=== PATIENT | female | born 1945 ===

== ENCOUNTER 2020-10-24 11:22 | Emergency (ER) | payer OTHER ==
[~2020-10-24] VITALS: Ht 160 cm; Wt 54.4 kg
[~2020-10-24 11:22] MED LIST: ADULT ASPIRIN81 MG; AMBIEN10 MG; AMLODIPINE BESI25 GM; COLACE50 MG; LIPITOR20 MG PO; LIPO-FLAVONOID1 EACH; NASAL MIST126 ML; PERCOCET 5/321 UDTAB; PRAVASTATIN SOD20 MG; VASOTEC10 MG; VYTORIN 10-40 M1 TAB; ZESTRIL5 MG
[2020-10-24] MEDS ORDERED: CLOPIDOGREL BIS75 MG PO (11:34)
[2020-10-24] MEDS ORDERED: ATORVASTATIN CA40 MG PO (11:34)
[2020-10-24] MEDS ORDERED: VOLTAREN ARTHRI20 GM TP (11:34)
== END 2020-10-24 14:45 | disposition home or self-care (01) ==
LOC: ER 11:22
DX: R53.81 Other malaise (principal); F41.8 Other specified anxiety disorders